=== PATIENT | female | born 1990 | race African-American/Black ===

== ENCOUNTER 2025-07-20 22:11 | Emergency (ER) | payer SELFPAY ==
[~2025-07-20] VITALS: Ht 165.1 cm; Wt 71.0 kg
[2025-07-20 23:03] VITALS: O2SAT 98
[2025-07-21 00:27] LABS: CREATININE 0.8 mg/dL (0.6-1.0)
[2025-07-21 00:28] LABS: UREA NITROGEN BLOOD 6 mg/dL (9-23)
[2025-07-21 00:29] LABS: ASPARTATE AMINOTRANSFERASE 14 IU/L (<34)
[2025-07-21 00:30] LABS: BILIRUBIN DIRECT 0.1 mg/dL (<=3.0); BILIRUBIN TOTAL 0.5 mg/dL (0.1-1.0); PROTEIN TOTAL 7.5 g/dL (6.0-8.3)
[2025-07-21 00:37] LABS: BASOPHILS % 0.7 % (0.0-2.0); EOSINOPHILS % 1.5 % (0.0-5.0); HEMATOCRIT. 39.8 % (36.0-48.0); HEMOGLOBIN. 13.1 g/dL (12.0-16.0); LYMPHOCYTES % 43.6 % (20.0-50.0); MEAN PLATELET VOLUME 7.7 fl (7.4-10.4); MONOCYTES % 9.4 % (2.0-8.0); NEUTROPHILS % 44.8 % (40.0-76.0); PLATELET 310 x1000/uL (130-400); RED BLOOD CELL COUNT 4.65 mill/uL (4.2-5.4); RED CELL DISTRIBUTION WIDTH 13.2 % (11.6-14.6)
[2025-07-21 01:11] LABS: HCG SCREEN NEGATIVE
[2025-07-21 01:27] LABS: *AMPHETAMINES SCREEN URINE NEGATIVE (NEGATIVE); *BARBITURATES SCREEN URINE NEGATIVE (NEGATIVE); *BENZODIAZEPINES SCREEN URINE NEGATIVE (NEGATIVE); *COCAINE SCREEN URINE NEGATIVE (NEGATIVE); CANNABINOID URINE SCREEN PRESUMPTIVE POSITIVE (NEGATIVE); ECSTASY MDMA SCREEN URINE NEGATIVE (NEGATIVE); METHADONE URINE SCREEN NEGATIVE (NEGATIVE); OPIATES URINE SCREEN NEGATIVE (NEGATIVE); PHENCYCLIDINE URINE SCREEN NEGATIVE (NEGATIVE)
[2025-07-21 03:17] LABS: CLARITY URINE CLEAR (CLEAR); COLOR URINE YELLOW (YELLOW); GLUCOSE URINE NEGATIVE (NEGATIVE); KETONES URINE NEGATIVE (NEGATIVE); LEUKOCYTE ESTERASE URINE NEGATIVE (NEGATIVE); NITRITE URINE NEGATIVE (NEGATIVE); OCCULT BLOOD URINE NEGATIVE (NEGATIVE); PH URINE 5.5 (4.5-8.0); PROTEIN URINE NEGATIVE (NEGATIVE); SPECIFIC GRAVITY URINE 1.023 (1.005-1.030); UROBILINOGEN URINE 0.2 E.U./dL (0.2-1.0)
[2025-07-21] MEDS: ONDANSETRON HCL 4MG/2ML INJ IM ONE (05:15)
[2025-07-21] MEDS: CITALOPRAM HYDROBROMIDE 10MG TABLET PO SCH (10:25)
[2025-07-21 16:46] VITALS: BP 118/80; PULSE 51; RESP 16; TEMP 36.7; O2SAT 100
== END 2025-07-21 16:50 ==
LOC: ER 22:11
DX: R45.851 Suicidal ideations (principal); F41.9 Anxiety disorder, unspecified; Z79.899 Other long term (current) drug therapy; Z20.822 Contact with and (suspected) exposure to COVID-19
CPT/HCPCS: 80076; 80048; 80307; 80329; 80320; 84703; 85025; 36415; 96372; 99285; 80305; 81003; 87426; J2405; G0480